=== PATIENT | female | born 1965 | race African-American/Black ===

== ENCOUNTER 2022-04-17 13:33 | Emergency (ER) | payer SELFPAY ==
[2022-04-17] MEDS ORDERED: Ondansetron 4 MG Tab.DIS PO ONE (14:27)
== END 2022-04-17 15:56 | disposition home or self-care (01) ==
LOC: JD.ED 13:33
DX: R10.84 Generalized abdominal pain (principal); R11.2 Nausea with vomiting, unspecified
CPT/HCPCS: 36415; 80053; 81003; 85025; 86140; 99284; A9270

== ENCOUNTER 2022-11-29 05:07 | Emergency (ER) | payer SELFPAY ==
[2022-11-29] MEDS ORDERED: Ondansetron 4 MG/2 ML SDV IVPUSH ONE (05:29)
[2022-11-29] MEDS ORDERED: HYDROmorphone 1 MG/ML Syringe IVPUSH STA (05:29)
[2022-11-29] MEDS ORDERED: Sodium Chloride 0.9% 1,000 ML IV SCH (05:30)
[2022-11-29 05:57] LABS: HEMATOCRIT 23.9 % (34.1-44.9); MEAN CORPUSCULAR HEMOGLOBIN 17.4 pg (25.6-32.2); MEAN CORPUSCULAR VOLUME 62.2 fl (79.4-94.8); PLATELET COUNT,PLT 271 K/mm3 (182-369); RED BLOOD CELL COUNT 3.84 M/mm3 (3.98-5.22); WHITE BLOOD CELL COUNT,WBC 5.47 K/mm3 (3.98-10.04)
[2022-11-29 06:04] LABS: HEMOGLOBIN 6.7 gm/dl (11.2-15.7)
[2022-11-29] MEDS ORDERED: Iopamidol 612 MG/ML 100 ML Bottle IVPUSH ONE (06:10)
[2022-11-29 06:12] LABS: A/G RATIO 0.8 (1-2); ALBUMIN 3.7 g/dl (3.4-5.0); ANION GAP 16.6 (5-15); BILIRUBIN TOTAL 0.3 mg/dL (0.2-1.0); BUN/CREATININE RATIO 25.7 (14-18); CALCIUM 9.2 mg/dL (8.5-10.1); CREATININE 0.7 mg/dL (0.55-1.02); EST CRCL DRUG DOSING (CG) 63.69 mL/min; POTASSIUM,K 3.6 mEq/L (3.5-5.1); PROTEIN TOTAL,TP 8.4 g/dl (6.4-8.2)
[2022-11-29 06:20] LABS: ANISOCYTOSIS 2+ MODERATE; BAND PERCENT MAN 0 % (0-10); BASOPHILS PERCENT MAN 1 (0.1-1.2); EOSINOPHILS PERCENT MAN 0 % (0.7-5.8); HYPOCHROMASIA 3+ MARKED; LYMPHOCYTES % ATYPICAL MANUAL 0 %; LYMPHOCYTES PERCENT MAN 18 % (20-40); MONOCYTES PERCENT MAN 8 % (2-10); OVALOCYTES 1+ SLIGHT; POIKILOCYTOSIS 1+ SLIGHT; POLYCHROMASIA 1+ SLIGHT; STOMATOCYTES 1+ SLIGHT; TARGET CELLS 1+ SLIGHT; TEARDROP CELLS 1+ SLIGHT
[2022-11-29 06:21] LABS: MICROCYTOSIS 2+ MODERATE; PLATELET COUNT ESTIMATE ADEQUATE
[2022-11-29 07:03] LABS: RETICULOCYTE COUNT PERCENT 1.49 % (0.50-1.70)
[2022-11-29 07:04] LABS: APPEARANCE,URINE CLEAR (Clear); BILIRUBIN,URINE NEGATIVE (Negative); COLOR,URINE YELLOW (Yellow); GLUCOSE,URINE NEGATIVE (Negative); KETONES,URINE NEGATIVE (Negative); LEUKOCYTE ESTERASE,URINE NEGATIVE (Negative); NITRITE,URINE NEGATIVE (Negative); OCCULT BLOOD,URINE NEGATIVE (Negative); PH,URINE 6.5 (5.0-8.0); PROTEIN,URINE NEGATIVE (Negative); UROBILINOGEN,URINE 0.2 (0.2-1.0)
[2022-11-29 07:29] LABS: RBC,URINE 0-5 /hpf (0-5); WBC,URINE 0-5 /hpf (0-5)
[2022-11-29 07:30] LABS: BACTERIA,URINE RARE /hpf (FEW); MUCUS,URINE NOT SEEN /hpf (FEW); SQUAMOUS EPITHELIAL CELLS,UR 0-5 /hpf (0-5)
[2022-11-29 07:34] LABS: FERRITIN 5 ng/ml (8-252); IRON,FE 12 ug/dL (50-170); LACTATE DEHYDROGENASE,LDH 217 U/L (81-234); PERCENT FE SATURATION 2 % (20-55); TRANSFERRIN 430 mg/dL (202-364)
[2022-11-29 07:35] LABS: TOTAL IRON BINDING CAPACITY 538 ug/dL (100-400)
[2022-11-29] MEDS ORDERED: Ibuprofen 800 MG Tab PO ONE (09:28)
[2022-11-29] MEDS ORDERED: Acetaminophen 325 MG Tab PO ONE (09:28)
== END 2022-11-29 09:36 | disposition home or self-care (01) ==
LOC: JD.ED 05:07
DX: D25.9 Leiomyoma of uterus, unspecified (principal); D64.9 Anemia, unspecified
CPT/HCPCS: 36415; 74177; 80053; 81001; 82728; 83540; 83615; 83690; 84466; 85007; 85027; 85045; 96361; 96374; 96375; 99284; A9270; J1170; J2405; J7030; Q9967